=== PATIENT | male | born 1965 | race Caucasian/White ===

== ENCOUNTER 2018-01-19 06:04 | Inpatient (IN) | payer OTHER ==
[2018-01-19] MEDS ORDERED: NORMAL SALINE 1000 ML 1,000 ML IV ONE ×2 (06:39→09:30)
[2018-01-19] MEDS ORDERED: ONDANSETRON HCL INJ/PF 4 MG/2 ML SDV IV ONE (06:40)
[2018-01-19] MEDS ORDERED: MORPHINE SULFATE 10 MG/ML INJ IV ONE (06:40)
[2018-01-19 06:54] LABS: ABSOLUTE LYMPHOCYTES (AUTO) 0.9 10^3/uL (0.5-4.7); ABSOLUTE MONOCYTES (AUTO) 0.7 10^3/uL (0.1-1.4); ABSOLUTE NEUT (AUTO) 10.9 10^3/uL (1.7-8.2); BASOPHILS % (AUTO) 0.3 % (0-2); HEMATOCRIT 49.5 % (37.9-51.0); HEMOGLOBIN 17.6 g/dL (13.5-17.0); MEAN CORPUSCULAR HEMOGLOBIN 32.9 pg (27.0-33.4); MEAN CORPUSCULAR HGB CONC 35.6 g/dL (32.0-36.0); MEAN CORPUSCULAR VOLUME 92 fl (80-97); MONOCYTES % (AUTO) 5.4 % (3-13); PLATELET COUNT 171 10^3/uL (150-450); RED BLOOD COUNT 5.36 10^6/uL (4.35-5.55); RED CELL DISTRIBUTION WIDTH 13.3 % (11.5-14.0); SEGMENTED NEUTROPHILS % (AUTO) 87.3 % (42-78); TOTAL CELLS COUNTED % (AUTO) 100 %; WHITE BLOOD COUNT 12.5 10^3/uL (4.0-10.5)
[2018-01-19 07:02] LABS: ALANINE AMINOTRANSFERASE 45 U/L (21-72); ALBUMIN 4.3 g/dL (3.5-5.0); ALKALINE PHOSPHATASE 61 U/L (38-126); ANION GAP 17 (5-19); ASPARTATE AMINO TRANSFERASE 37 U/L (17-59); BILIRUBIN,DIRECT 0.6 mg/dL (0.0-0.4); BILIRUBIN,TOTAL 1.9 mg/dL (0.2-1.3); BLOOD UREA NITROGEN 16 mg/dL (7-20); CALCIUM 9.4 mg/dL (8.4-10.2); CARBON DIOXIDE 23 mmol/L (22-30); CHLORIDE 97 mmol/L (98-107); GLUCOSE 164 mg/dL (75-110); LIPASE 12.6 U/L (23-300); POTASSIUM 3.7 mmol/L (3.6-5.0); SODIUM 136.6 mmol/L (137-145); TOTAL PROTEIN 7.6 g/dL (6.3-8.2)
--- NOTE | 2018-01-19 07:24 | RADIOLOGY REPORT (SQ) ---
EXAM DESCRIPTION: XR CHEST 1 VIEW COMPLETED DATE/TME: 01/19/2018 06:39 CLINICAL HISTORY: 52 years Male, abd pain COMPARISON: None. NUMBER OF VIEWS/TECHNIQUE: 1/AP FINDINGS: Moderate lung volume, small patchy opacity at the left costophrenic angle,, normal cardiac silhouette, and intact bony thorax. IMPRESSION: Small left basilar pneumonia/atelectasis. Differential etiologies include infectious, inflammatory, and neoplastic processes. Recommend CR/CT surveillance including at 7-12 weeks following initiation of clinically warranted therapy.
--- NOTE | 2018-01-19 07:40 | ER Document Report ---
ED General - General Chief Complaint: Nausea/Vomiting Stated Complaint: VOMITING Time Seen by Provider: 01/19/18 06:23 TRAVEL OUTSIDE OF THE [place] IN LAST 30 DAYS: No - HPI Notes: 52-year-old male who comes in complaining of nausea vomiting that started 2 days ago. Has had subjective fever and chills. He has not measured. Make showing up green bile. Patient denies any diarrhea denies constipation states his abdomen sort of hurts all over nowhere focal. Denies any falls denies trauma. Denies sore throat. - Related Data Allergies/Adverse Reactions: No Known Allergies Allergy (Unverified 01/19/18 06:29) Past Medical History - Social History Smoking Status: Never Smoker Chew tobacco use (# tins/day): No Frequency of alcohol use: Heavy Drug Abuse: None Family History: None Patient has suicidal ideation: No Patient has homicidal ideation: No - Past Medical History Cardiac Medical History: Reports: Hx Hypertension Renal/ Medical History: Denies: Hx Peritoneal Dialysis Psychiatric Medical History: Reports: Hx Depression - +anxiety +PTSD Past Surgical History: Reports: Hx Orthopedic Surgery - shoulder Review of Systems - Review of Systems Cardiovascular: denies: Chest pain, Dyspnea Respiratory: denies: Cough Gastrointestinal: Abdomen distended, Abdominal pain, Nausea, Vomiting. denies: Diarrhea -: Yes All other systems reviewed and negative Physical Exam - Vital signs Vitals: Resp Pulse Ox 27 H 93 01/19/18 06:08 01/19/18 06:08 - Notes Notes: 52-year-old now comes in with abdominal cramping nausea vomiting. His abdomen is crampy all 4 quadrants but really no focal tenderness. We will give him IV fluids pain and nausea medicine get a scan of his abdomen check some generalized blood and electrolytes although this may likely be viral in nature. Course - Re-evaluation Re-evalutation: 01/19/18 08:25 52-year-old male who comes in for nausea vomiting some abdominal discomfort he is more tender in the right side of the abdomen. We are able to get some fluids pain and nausea medicine him and I reevaluated his abdomen and he is tenderness in the right lower quadrant. He does have a little bit of guarding. He does have a white count of almost [address] does show what looks to be some inflammation around the appendix. I have consulted surgery Dr. Nash he will come evaluate the patient for appropriateness for the OR. - Vital Signs Vital signs: Temp Pulse Resp BP Pulse Ox 98.4 F 22 H 109/77 92 01/19/18 06:24 01/19/18 07:02 01/19/18 07:02 01/19/18 07:02 - Laboratory Result Diagrams: 01/19/18 06:14 01/19/18 06:14 Laboratory results interpreted by me: 01/19/18 01/19/18 06:14 06:14 WBC 12.5 H Hgb 17.6 H Seg Neutrophils % 87.3 H Lymphocytes % 7.0 L Absolute Neutrophils 10.9 H Sodium 136.6 L Chloride 97 L Glucose 164 H Total Bilirubin 1.9 H Direct Bilirubin 0.6 H Lipase 12.6 L - Diagnostic Test Radiology reviewed: Image reviewed Radiology results interpreted by me: 01/19/18 08:25 Abdomen/Pelvis CT 01/19/18 06:39 IMPRESSION: 1. Acute appendicitis. 2. 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 Chest X-Ray 01/19/18 06:39 IMPRESSION: Small left basilar pneumonia/atelectasis. Differential etiologies include infectious, inflammatory, and neoplastic processes. Recommend CR/CT surveillance including at 7-12 weeks following initiation of clinically warranted therapy. Discharge - Discharge Clinical Impression: Appendicitis Qualifiers: Appendicitis type: acute appendicitis Acute appendicitis type: with localized peritonitis Qualified Code(s): K35.3 - Acute appendicitis with localized peritonitis Condition: Fair Disposition: ADMITTED INPATIENT Admitting Provider: Surgicalist Unit Admitted: OR
--- NOTE | 2018-01-19 07:55 | RADIOLOGY REPORT (SQ) ---
EXAM DESCRIPTION: CT ABDOMEN PELVIS WITH IV CONTRAST COMPLETED DATE/TME: 01/19/2018 06:39 CLINICAL HISTORY: 52 years Male, abd pain Comparison: None. Technique: IV contrast. Coronal and sagittal reformat. This exam was performed according to our departmental dose-optimization program, which includes automated exposure control, adjustment of the mA and/or kV according to patient size and/or use of iterative reconstruction technique. [facility]: Dose Right [facility]: CareDose [facility]: Dose Right [facility]: Teradose 4D [facility]: Anhelo LIMITATIONS: None Findings: Acute appendicitis pattern includes an obstructing 0.7 cm appendicolith, inflamed, 1.2 cm diameter appendix, moderate streaky periappendiceal fat, and no significant free fluid. Mild mesenteric lymphadenopathy of the right lower abdominal quadrant. Multiple likely benign low attenuation hepatic cysts measure up to 2.8 cm each. Small left inguinal fat only hernia. Moderate fat replacement of the pancreas. Small disc bulges between the L3 and S1 levels. 2.3 cm diameter aneurysmal enlargement of the left common iliac artery. No ascites. Inferior thorax, gallbladder, spleen, adrenals, renal system, pelvic organs, vasculature, and musculoskeleton appear otherwise unremarkable. IMPRESSION: 1. Acute appendicitis. 2. 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
[2018-01-19] MEDS ORDERED: PIPERACILLIN/TAZOBACTAM 3.375 GM VIAL IV ONE (10:00)
[2018-01-19] MEDS: MORPHINE SULFATE 10 MG/ML INJ IV PRN ×2 (10:35→19:03)
[2018-01-19] MEDS ORDERED: BUPIVACAINE HCL 0.25 % INJ/PF (2.5 MG/1 ML) 30 ML VIAL ONE (12:14)
[2018-01-19] MEDS ORDERED: ALBUTEROL SULFATE 0.083% NEB 2.5 MG/3 ML AMPUL NEB ONE (12:20)
[2018-01-19 12:36] LABS: APPEARANCE,URINE CLEAR; BILIRUBIN,URINE NEGATIVE (NEGATIVE); COLOR,URINE YELLOW; GLUCOSE, URINE 50 mg/dL (NEGATIVE); KETONES,URINE NEGATIVE (NEGATIVE); LEUKOCYTE ESTERASE,URINE NEGATIVE (NEGATIVE); NITRITE,URINE NEGATIVE (NEGATIVE); PROTEIN,URINE 30 mg/dL (NEGATIVE)
[2018-01-19 12:41] LABS: URINE SPECIFIC GRAVITY > 1.060
[2018-01-19] MEDS ORDERED: FENTANYL CITRATE INJ/PF 100 MCG/2 ML AMPUL ONE ×3 (13:23→16:33)
[2018-01-19] MEDS ORDERED: HYDROMORPHONE HCL INJ/PF 2 MG/ML AMPULE ONE (13:23)
[2018-01-19] MEDS ORDERED: PROPOFOL INJ 200 MG/20 ML VIAL IV ONE (13:24)
[2018-01-19] MEDS ORDERED: ACETAMINOPHEN 1,000 MG/100 ML RTUPB IV ONE (13:24)
[2018-01-19] MEDS ORDERED: MIDAZOLAM 2 MG/2 ML INJ ONE (13:24)
--- NOTE | 2018-01-19 13:42 | PDOC H&P ---
History of Present Illness Admission Date/PCP: 01/19/18 08:47 Patient complains of: Abdominal pains with nausea and vomiting History of Present Illness: SAÚL ASHFORD is a 52 year old male who c/o vague abdominal pains past 2 days which became worse last night and this time associated with N/V. Admits to having fever/chills. No diarrhea/constipation. Past Medical History Cardiac Medical History: Reports: Hypertension Psychiatric Medical History: Reports: Depression - +anxiety +PTSD Past Surgical History Past Surgical History: Reports: Orthopedic Surgery - shoulder Social History Smoking Status: Never Smoker - Advance Directive Resuscitation Status: Full Code Family History Family History: None Parental Family History Reviewed: Yes Children Family History Reviewed: No Sibling(s) Family History Reviewed.: No Medication/Allergy Allergies/Adverse Reactions: No Known Allergies Allergy (Unverified 01/19/18 06:29) Physical Exam Vital Signs: Temp Pulse Resp BP Pulse Ox 98.4 F 80 14 125/81 93 01/19/18 08:00 01/19/18 12:46 01/19/18 12:46 01/19/18 11:00 01/19/18 11:01 Results Laboratory Results: 01/19/18 12:03 Urine Color YELLOW Urine Appearance CLEAR Urine pH 6.0 Ur Specific [place] > 1.060 Urine Protein 30 H Urine Glucose (UA) 50 H Urine Ketones NEGATIVE Urine Blood NEGATIVE Urine Nitrite NEGATIVE Ur Leukocyte Esterase NEGATIVE Urine WBC (Auto) 1 Urine RBC (Auto) 2 Impressions: Abdomen/Pelvis CT 01/19/18 06:39 IMPRESSION: 1. Acute appendicitis. 2. 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 Chest X-Ray 01/19/18 06:39 IMPRESSION: Small left basilar pneumonia/atelectasis. Differential etiologies include infectious, inflammatory, and neoplastic processes. Recommend CR/CT surveillance including at 7-12 weeks following initiation of clinically warranted therapy. Assessment & Plan - Time Time Spent: 30 to 50 Minutes - Plan Summary Plan Summary: To OR for Lap Appendectomy
[2018-01-19] MEDS ORDERED: PROMETHAZINE HCL INJ 25 MG/1 ML VIAL IV PRN (14:40)
[2018-01-19] MEDS ORDERED: DIPHENHYDRAMINE HCL 50 MG/ML VIAL IV PRN (14:40)
[2018-01-19] MEDS ORDERED: FENTANYL CITRATE INJ/PF 100 MCG/2 ML AMPUL IV PRN ×2 (14:40)
[2018-01-19] MEDS ORDERED: DEXTROSE 40% GEL 15 GM TUBE PO PRN ×2 (16:10)
[2018-01-19] MEDS ORDERED: DEXTROSE 50%-WATER 25 GM/50 ML DISP.SYRIN IV PRN ×2 (16:10)
[2018-01-19] MEDS ORDERED: GLUCAGON,HUMAN RECOMB 1 MG INJ SUBCUT PRN (16:10)
[2018-01-19] MEDS ORDERED: ONDANSETRON HCL INJ/PF 4 MG/2 ML SDV IV PRN (16:17)
[2018-01-19] MEDS: FENTANYL CITRATE INJ/PF 100 MCG/2 ML AMPUL IV PRN ×2 (16:23→16:33)
[2018-01-19] MEDS ORDERED: PHARMACY COMMUNICATION ORDER MC NR (16:30)
--- NOTE | 2018-01-19 17:20 | OPERATIVE REPORT E ---
Operative Report NAME: SAÚL ASHFORD : 1965 AGE: 52Y DATE OF SURGERY: 01/19/2018 ROOM: ED06 PREOPERATIVE DIAGNOSIS: ACUTE PERFORATED APPENDICITIS WITH PERITONITIS. POSTOPERATIVE DIAGNOSIS: ACUTE PERFORATED APPENDICITIS WITH PERITONITIS. OPERATION: OPEN APPENDECTOMY. SURGEON: CLARKE PACHECO M.D. ANESTHESIA: General. INDICATION: This is a 52-year-old male with at least 2 days of abdominal pain with nausea and vomiting. The pains worsened last night and he went to the ED, where he was noted to have acute appendicitis with clinical peritonitis. The patient is primarily tender in both lower quadrants. PROCEDURE: After adequate general anesthesia, the abdomen was prepped and draped in the usual sterile fashion. Appropriate timeout was then called. Next, an infraumbilical elliptical incision was made. Fascia was grasped with Avelina clamps and divided between the Avelina clamps, dissected and dilated with Rachel clamp. Malika trocar was then inserted. CO2 insufflated to about 15 mmHg. Next, a camera was then inserted and there appears to be exudates primarily along both lower quadrants. There was not any omentum covering the area of the appendix, but small bowel that is markedly inflamed was adherent towards the area of the appendix. In view of perforation of the appendix, the operation was then converted to open. Midline incision was then made, starting from the pubis to just above the umbilicus. With the use of Bookwalter retractors, the appendix was identified and noted to be perforated right at its mid part. It was noted to be dilated to at least 12 mm. The mesoappendix was then serially divided with Harmonic lambert. However, there is some bleeding noted that was then controlled with rhpyfq-[id number] suture using 2-0 Vicryl suture. The base of the appendix was noted to be quite free of inflammation. This was then stapled flush to the cecum using a 30 cm stapler. The appendix was then shaved off of the TA30 and the TA30 subsequently released. Small amount of oozing noted at the appendiceal stump, and this was then controlled with a couple of [id number] sutures using 3-0 Vicryl stitch. The fatty mesentery close to the appendix was then used to buttress the appendiceal stump with 3-0 Vicryl stitch. Following this, the abdominal cavity was then copiously irrigated. The small bowel was then tracked from the ileum from the cecum towards the ligament of Treitz, and no evidence of injury or significant inflammation noted. It was somewhat inflamed at the terminal ileum from the appendicitis. The abdominal cavity was irrigated with at least 5 liters of saline from all 4 quadrants. NG tube was palpated in the stomach and taped in place by the manager paid. The omentum was palpated to be right below the stomach, but not enough to go down into the area of the appendix, and most likely one of the reasons for its perforation, though relatively contained. However, there is a lot of exudate in the lower abdomen. Cultures were obtained. After the wound was irrigated, the fascia was then closed with running suture using single arm 0 PDS, starting from both ends and tying the 2 together just below the umbilicus. In view of the potential contaminating of the subcutaneous area and the fact that the patient is slightly obese, it feels prudent to place a Wound Vac and close the wound in delayed primary in about 3 or 4 days. This was then carried out. The Wound Vac was placed. A drain was placed at the right lower quadrant prior to closure of the fascia using 15 [place] Semaj drain catheter placed towards the area of the pelvis. It was then anchored to the skin with 2-0 silk. After placement of the Wound Vac, the patient was then extubated. The patient tolerated the procedure well. Needle, instrument, and sponge count correct. Estimated blood loss about 30 mL. The patient was brought to the recovery room in satisfactory condition. DICTATING PHYSICIAN: CLARKE PACHECO M.D. [id number] PHY#: [id number] ID: [id number] JOB#: [id number] ACCT: [id number] cc:CLARKE PACHECO M.D. >
[2018-01-19] MEDS ORDERED: PIPERACILLIN/TAZOBACTAM 3.375 GM VIAL IV SCH (18:00)
[2018-01-19] MEDS ORDERED: NORMAL SALINE 500 ML IV ONE ×2 (18:30→23:45)
[2018-01-19] MEDS: PIPERACILLIN SODIUM/TAZOBACTAM 3.375 GM in NORMAL SALINE 100 ML IV SCH (19:10)
[2018-01-19] MEDS ORDERED: ONDANSETRON HCL INJ/PF 4 MG/2 ML SDV ONE (21:20)
[2018-01-19] MEDS ORDERED: GLYCOPYRROLATE 1 MG/5 ML SYRINGE ONE (21:20)
[2018-01-19] MEDS ORDERED: NEOSTIGMINE METHYLSULFATE 10 MG/10 ML VIAL ONE (21:20)
[2018-01-19] MEDS ORDERED: ROCURONIUM BROMIDE INJ 50 MG/5 ML VIAL IV ONE (21:20)
[2018-01-19] MEDS ORDERED: DEXAMETHASONE SOD PHOSPHATE INJ 4 MG/1 ML VIAL ONE (21:20)
[2018-01-19] MEDS ORDERED: SUCCINYLCHOLINE CHLORIDE INJ 200 MG/10 ML VIAL ONE (21:20)
--- NOTE | 2018-01-19 21:24 | EKG REPORT ---
SEVERITY:- BORDERLINE ECG - SINUS RHYTHM BORDERLINE T ABNORMALITIES, INFERIOR LEADS : Confirmed by: Jeannette Mesa 19-Jan-2018 21:23:19
[2018-01-20] MEDS: MORPHINE SULFATE 10 MG/ML INJ IV PRN ×5 (00:08→22:00)
[2018-01-20] MEDS: PIPERACILLIN SODIUM/TAZOBACTAM 3.375 GM in NORMAL SALINE 100 ML IV SCH ×4 (00:09→18:34)
[2018-01-20] MEDS: DEXTROSE 5%-LACTATED RINGERS 1,000 ML IV SCH ×5 (00:09→18:56)
[2018-01-20 06:59] LABS: ABSOLUTE LYMPHOCYTES (AUTO) 0.7 10^3/uL (0.5-4.7); ABSOLUTE MONOCYTES (AUTO) 0.4 10^3/uL (0.1-1.4); ABSOLUTE NEUT (AUTO) 6.1 10^3/uL (1.7-8.2); BASOPHILS % (AUTO) 0.3 % (0-2); HEMATOCRIT 40.8 % (37.9-51.0); LYMPHOCYTES % (AUTO) 9.6 % (13-45); MEAN CORPUSCULAR HEMOGLOBIN 33.1 pg (27.0-33.4); MEAN CORPUSCULAR HGB CONC 34.9 g/dL (32.0-36.0); MEAN CORPUSCULAR VOLUME 95 fl (80-97); PLATELET COUNT 107 10^3/uL (150-450); RED CELL DISTRIBUTION WIDTH 13.5 % (11.5-14.0); SEGMENTED NEUTROPHILS % (AUTO) 84.1 % (42-78); TOTAL CELLS COUNTED % (AUTO) 100 %; WHITE BLOOD COUNT 7.2 10^3/uL (4.0-10.5)
[2018-01-20 07:07] LABS: HEMOGLOBIN 14.2 g/dL (13.5-17.0)
[2018-01-20 07:11] LABS: ANION GAP 6 (5-19); BLOOD UREA NITROGEN 13 mg/dL (7-20); CALCIUM 8.6 mg/dL (8.4-10.2); CARBON DIOXIDE 30 mmol/L (22-30); CHLORIDE 105 mmol/L (98-107); GLUCOSE 113 mg/dL (75-110); POTASSIUM 3.8 mmol/L (3.6-5.0); SODIUM 141.4 mmol/L (137-145)
[2018-01-20] MEDS: ENOXAPARIN SODIUM INJ 40 MG/0.4 ML DISP.SYRIN SUBCUT SCH (10:52)
--- NOTE | 2018-01-20 14:39 | PDOC PROGRESS REPORT ---
Subjective Progress Note for:: 01/20/18 Reason For Visit: ACUTE APPENDICITIS WITH PERITONITIS Patient postoperative day 1, has adequate pain control, back, abdominal drain, Goss catheter still in. Physical Exam Vital Signs: Temp Pulse Resp BP Pulse Ox 98.4 F 68 22 H 134/85 H 93 01/20/18 11:25 01/20/18 11:25 01/20/18 11:25 01/20/18 11:25 01/20/18 11:25 Intake & Output 01/19/18 01/20/18 01/21/18 06:59 06:59 06:59 Intake Total 8800 Output Total 6195 395 Balance 2605 -395 Weight 118.887 kg General appearance: PRESENT: no acute distress GI/Abdominal exam: PRESENT: other - Appropriately tender; fax suction intact; serous sanguinous drainage from right lower Results Laboratory Results: 01/20/18 06:21 01/20/18 06:21 01/20/18 01/20/18 06:21 06:21 WBC 7.2 RBC 4.30 L Hgb 14.2 D Hct 40.8 MCV 95 MCH 33.1 MCHC 34.9 RDW 13.5 Plt Count 107 L Seg Neutrophils % 84.1 H Lymphocytes % 9.6 L Monocytes % 6.0 Eosinophils % 0.0 Basophils % 0.3 Absolute Neutrophils 6.1 Absolute Lymphocytes 0.7 Absolute Monocytes 0.4 Absolute Eosinophils 0.0 Absolute Basophils 0.0 Sodium 141.4 Potassium 3.8 Chloride 105 Carbon Dioxide 30 Anion Gap 6 BUN 13 Creatinine 0.87 Est GFR ( Amer) > 60 Est GFR (Non-Af Amer) > 60 Glucose 113 H Calcium 8.6 Impressions: Abdomen/Pelvis CT 01/19/18 06:39 IMPRESSION: 1. Acute appendicitis. 2. 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 Chest X-Ray 01/19/18 06:39 IMPRESSION: Small left basilar pneumonia/atelectasis. Differential etiologies include infectious, inflammatory, and neoplastic processes. Recommend CR/CT surveillance including at 7-12 weeks following initiation of clinically warranted therapy. Assessment & Plan - Diagnosis (1) Appendicitis Qualifiers: Appendicitis type: acute appendicitis Acute appendicitis type: with localized peritonitis Qualified Code(s): K35.3 - Acute appendicitis with localized peritonitis Is this a current diagnosis for this admission?: Yes Plan: Doing well early postoperative course Recommendations: 1. Start clear liquids 2. Discontinue Goss catheter 3. Out of bed ambulating; increased pulmonary toilet 4. We will provide p.o. pain medication.
[2018-01-20] MEDS: KETOROLAC TROMETHAMINE INJ/PF 30 MG/1 ML SDV IV PRN (15:42)
[2018-01-20] MEDS: HYDROCHLOROTHIAZIDE 12.5 MG TABLET PO SCH (21:59)
[2018-01-20] MEDS: LISINOPRIL 10 MG TABLET PO SCH (22:00)
[2018-01-20] MEDS ORDERED: (PENDING PHARMACY ID) (Lisinopril/Hydrochlorothiazide [Lisinopril-Hctz 10-12.5 Mg Tab] 1 T PO SCH (22:00)
[2018-01-20] MEDS ORDERED: FUROSEMIDE INJ/PF 20 MG/2 ML SDV IV ONE (23:00)
[2018-01-20] MEDS ORDERED: ACETAMINOPHEN 325 MG TABLET PO ONE (23:00)
[2018-01-21] MEDS: PIPERACILLIN SODIUM/TAZOBACTAM 3.375 GM in NORMAL SALINE 100 ML IV SCH ×3 (00:20→12:07)
[2018-01-21] MEDS: DEXTROSE 5%-LACTATED RINGERS 1,000 ML IV SCH (03:34)
[2018-01-21] MEDS: KETOROLAC TROMETHAMINE 10 MG TABLET PO PRN ×3 (07:46→21:49)
[2018-01-21 09:29] LABS: ABSOLUTE EOSINOPHILS # (AUTO) 0.2 10^3/uL (0.0-0.6); ABSOLUTE LYMPHOCYTES (AUTO) 0.5 10^3/uL (0.5-4.7); ABSOLUTE MONOCYTES (AUTO) 0.6 10^3/uL (0.1-1.4); BASOPHILS % (AUTO) 0.3 % (0-2); EOSINOPHILS % (AUTO) 2.7 % (0-6); HEMATOCRIT 38.6 % (37.9-51.0); HEMOGLOBIN 13.7 g/dL (13.5-17.0); LYMPHOCYTES % (AUTO) 8.4 % (13-45); MEAN CORPUSCULAR HEMOGLOBIN 33.4 pg (27.0-33.4); MEAN CORPUSCULAR HGB CONC 35.4 g/dL (32.0-36.0); MEAN CORPUSCULAR VOLUME 94 fl (80-97); PLATELET COUNT 113 10^3/uL (150-450); RED BLOOD COUNT 4.09 10^6/uL (4.35-5.55); RED CELL DISTRIBUTION WIDTH 13.3 % (11.5-14.0); SEGMENTED NEUTROPHILS % (AUTO) 79.6 % (42-78); TOTAL CELLS COUNTED % (AUTO) 100 %; WHITE BLOOD COUNT 6.3 10^3/uL (4.0-10.5)
[2018-01-21] MEDS: LISINOPRIL 10 MG TABLET PO SCH ×2 (09:33→21:51)
[2018-01-21] MEDS: HYDROCHLOROTHIAZIDE 12.5 MG TABLET PO SCH ×2 (09:33→21:50)
[2018-01-21] MEDS: ENOXAPARIN SODIUM INJ 40 MG/0.4 ML DISP.SYRIN SUBCUT SCH (09:34)
--- NOTE | 2018-01-21 10:05 | RADIOLOGY REPORT (SQ) ---
EXAM DESCRIPTION: CT CHEST WITHOUT COMPLETED DATE/TIME: 01/21/2018 9:05 am REASON FOR STUDY: SOB AND CRACKLES COMPARISON: CT abdomen pelvis 01/19/2018 TECHNIQUE: CT scan performed of the chest without intravenous contrast. Images reviewed with lung, soft tissue and bone windows. Reconstructed coronal and sagittal MPR images reviewed. All images st ored on PACS. All CT scanners at this facility use dose modulation, iterative reconstruction, and/or weight based d osing when appropriate to reduce radiation dose to as low as reasonably achievable (ALARA). [facility]: Dose Right [facility]: CareDose [facility]: Dose Right [facility]: Teradose 4D [facility]: Verious RADIATION DOSE: CT Rad equipment meets quality standard of care and radiation dose reduction techniq ues were employed. CTDIvol: 18.4 mGy. DLP: 643 mGy-cm. mGy. LIMITATIONS: No technical limitations. FINDINGS: LUNGS AND PLEURA: There is bibasilar consolidation atelectasis versus pneumonia. No significant pleural fluid. No pneumothorax. No worrisome pulmonary nodules. HILAR AND MEDIASTINAL STRUCTURES: No identified masses or abnormal nodes. No obvious aneurysm. HEART AND VASCULAR STRUCTURES: No aneurysm. No pericardial effusion. UPPER ABDOMEN: Fatty liver. Benign hepatic cysts. THYROID AND OTHER SOFT TISSUES: No masses. No adenopathy. BONES: No significant finding. HARDWARE: None in the chest. OTHER: No other significant findings. IMPRESSION: Bibasilar consolidation atelectasis versus pneumonia TECHNICAL DOCUMENTATION: JOB ID: [id number] Quality ID # [id number]: Final reports with documentation of one or more dose reduction techniques (e.g., Au tomated exposure control, adjustment of the mA and/or kV according to patient size, use of iterative reconstruction technique) 2010 [employer]- All Rights Reserved Reading location - IP/workstation name: [email or web address]
--- NOTE | 2018-01-21 12:01 | PDOC CONSULTATION ---
Consultation Consult Date: 01/21/18 Attending physician:: SARAHI FRANCO Consult reason:: Fever, possible pneumonia, acute perforated appendicitis status post surgery 01/19/18 History of Present Illness Admission Date/PCP: 01/19/18 08:47 Patient complains of: Doing better at this time, still with abdominal pain but improving. History of Present Illness: SAÚL ASHFORD is a 52 year old male with several weeks of right lower quadrant abdominal pain on and off, presented to ED 01/19/18 with worsening pain over the past 2 days. Evaluation concerning for tenderness and signs of peritonitis. Patient was taken to the OR and he is status post surgery 01/19/[address] Franco. Initial hemoglobin was 12.5, but has improved. Patient currently on Zosyn. The surgeon obtained medical consult today because patient with fevers ( low-grade today) and chest x-ray concerning for atelectasis versus pneumonia versus mass. Patient reports doing better, ambulating around the floor, denies fever or chills, no chest pain or shortness of breath or palpitations. He is tolerating soft diet. No nausea or vomiting. He denies cough or hemoptysis. Past Medical History Cardiac Medical History: Reports: Hypertension Psychiatric Medical History: Reports: Depression Past Surgical History Past Surgical History: Reports: Appendectomy, Orthopedic Surgery - shoulder Social History Smoking Status: Never Smoker Frequency of Alcohol Use: Occasional Hx Recreational Drug Use: No Drugs: None Hx Prescription Drug Abuse: No - Advance Directive Resuscitation Status: Full Code Family History Family History: None Parental Family History Reviewed: Yes Children Family History Reviewed: Yes Sibling(s) Family History Reviewed.: Yes Medication/Allergy Home Medications: Lisinopril/Hydrochlorothiazide [Lisinopril-Hctz 10-12.5 mg Tab] 1 tab PO Q12 07/08 Allergies/Adverse Reactions: No Known Allergies Allergy (Unverified 01/19/18 06:29) Review of Systems Review of Systems: CONSTITUTIONAL : Fever, chills -- No; unexpalined fatigue -- No EENT: Denies eye, ear, throat, or mouth pain or symptoms. Denies nasal or sinus congestion or discharge. Denies throat, tongue, or mouth swelling or difficulty swallowing. CARDIOVASCULAR: Denies chest pain. No racing heart RESPIRATORY: Denies cough, no shortness of breath, difficulty breathing. GASTROINTESTINAL: Has right lower quadrant pain. Denies distention. Denies nausea, vomiting, or diarrhea. No rectal bleeding. GENITOURINARY: Urinary symptoms -- no. MUSCULOSKELETAL: No acute weakness SKIN: Denies rash, lesions or sores. HEMATOLOGIC : Denies easy bruising or bleeding. LYMPHATIC: Denies swollen, enlarged glands. NEUROLOGICAL: New weakness, headaches, slured speach - No PSYCHIATRIC: Changes anxiety or stress, depression, suicidal ideation, or homicidal ideation -- No ALL OTHER SYSTEMS REVIEWED AND NEGATIVE. Physical Exam Vital Signs: Temp Pulse Resp BP Pulse Ox 100.8 F H 77 24 H 135/92 H 96 01/21/18 07:45 01/21/18 09:30 01/21/18 09:30 01/21/18 09:30 01/21/18 09:30 Intake & Output 01/20/18 01/21/18 01/22/18 06:59 06:59 06:59 Intake Total 8800 4238 Output Total 6195 1665 10 Balance 0735 2573 -10 Weight 118.887 kg 119.4 kg GENERAL: Well-developed, no acute distress HEENT: Normocephalic/atraumatic NECK supple, no JVD CARDIOVASCULAR: RRR, normal S1-S2, no appreciable murmur LUNGS: Few basilar crackles, good air movement, no wheezing or rales ABDOMEN: Soft, surgical site without erythema, dressing clean dry and intact. There is mild tenderness around surgical site with no guarding or rebound. NL bowel sounds EXTREMITIES: No edema, clubbing, cyanosis NEUROLOGICAL: Alert, oriented x 3, nonfocal Results Laboratory Results: 01/21/18 09:10 01/20/18 06:21 01/21/18 09:10 WBC 6.3 RBC 4.09 L Hgb 13.7 Hct 38.6 MCV 94 MCH 33.4 MCHC 35.4 RDW 13.3 Plt Count 113 L Seg Neutrophils % 79.6 H Lymphocytes % 8.4 L Monocytes % 9.0 Eosinophils % 2.7 Basophils % 0.3 Absolute Neutrophils 5.0 Absolute Lymphocytes 0.5 Absolute Monocytes 0.6 Absolute Eosinophils 0.2 Absolute Basophils 0.0 Impressions: Abdomen/Pelvis CT 01/19/18 06:39 IMPRESSION: 1. Acute appendicitis. 2. 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 Chest X-Ray 01/19/18 06:39 IMPRESSION: Small left basilar pneumonia/atelectasis. Differential etiologies include infectious, inflammatory, and neoplastic processes. Recommend CR/CT surveillance including at 7-12 weeks following initiation of clinically warranted therapy. Chest CT 01/21/18 00:00 IMPRESSION: Bibasilar consolidation atelectasis versus pneumonia Assessment & Plan - Diagnosis (1) Fever Is this a current diagnosis for this admission?: Yes Plan: Patient status post surgery for perforated appendix. Culture growing E. coli at this time sensitive to Zosyn, as well as Levaquin. -Of note is patient had leukocytosis, but it has now resolved. -Chest CT has been done this morning, concerning for possible pneumonia versus atelectasis. -I suspect transitioning antibiotics to Levaquin should be sufficient, but will obtain ID evaluation, given ruptured appendix to see if at least to Flagyl orally to complete outpatient treatment for antibiotics. -Incentive spirometry. (2) Leukocytosis Is this a current diagnosis for this admission?: Yes Plan: This was present on admission, but has now improved. Also, see "fever" above. (3) Hypertension Is this a current diagnosis for this admission?: Yes Plan: Stable. Continue management. (4) Appendicitis Qualifiers: Appendicitis type: acute appendicitis Acute appendicitis type: with localized peritonitis Qualified Code(s): K35.3 - Acute appendicitis with localized peritonitis Is this a current diagnosis for this admission?: Yes Plan: -Status post surgery. Postop care per surgeon. -Incentive spirometry - Plan Summary Plan Summary: Suspect postop fevers. Doubt pneumonia. Suspect atelectasis. Advice incentive spirometry. Will await ID recommendation in any case.
[2018-01-21] MEDS: ALBUTEROL SULFATE 0.083% NEB 2.5 MG/3 ML AMPUL NEB SCH ×2 (13:11→20:13)
--- NOTE | 2018-01-21 14:45 | Progress Note ---
Provider Note Provider Note: ID Consult Note Asked to provide input regarding this case. Pt not seen or examined. Reviewed patient's chart and discussed with Dr. Adams via telephone. Mr Berrios is a 52 year old man with PMH including obesity and HTN who presented on 01/19/18 with acute onset of abdominal pain with associated N&V and subjective fever and chills at home for the past 2 days with lower abdominal tenderness on exam and CT abdomen revealing findings c/w acute appendicitis. He was taken to the OR on 01/19 for open appendectomy through midline incision, was found to have perforated appendicitis with peritonitis. The abdomen was irrigated. A lot of exudate was noted in the lower abdomen and from this culture was obtained, which has shown growth of E coli (resistant to Unasyn and ampicillin), Peptostreptococcus and Bacteroides (beta lactamase positive). Wound vac was placed to help closure considering pt's obesity. Pt has been reported to be doing well post operatively but has had fever to 102.6 on 01/20 and 100.8 F on 01/21. His WBC count is normal. He is ambulating. He has no complaints of SOB or cough that have been noted. Pt has been receiving Zosyn. He had chest imaging ( CT, CXR) read as c/w atelectasis vs pneumonia. Impression/Recommendations Post-operative fever Perforated appendicitis s/p appendectomy, washout Atelectasis With source control achieved, post-op duration of antibiotics should be limited to a short course, no more than 4-7 days in duration. With no Pseudomonas isolated and patient being from the community, the broader spectrum of activity of Zosyn is not required. Can de-escalate to Rocephin 2 g IV plus Flagyl while patient is hospitalized and, if discharged prior to completion of this should course of antibiotics, can complete treatment instead with Cipro 500 mg BID PO plus Flagyl 500 mg TID PO. Pt should be counseled on need to avoid alcohol while on Flagyl and to avoid taking calcium, iron or other multivalent cation containing products (Maalox, Mylanta, multivitamin with minerals) concurrently with the fluoroquinolone to avoid chelating the fluoroquinolone and reducing exposure. With patient have no SOB, O2 requirement or cough or adventitious lung sounds apart from some fine crackles at bases b/l, pneumonia appears unlikely. Thiago Dasilva MD [facility], 1928–1983 Infectious Diseases pager [phone]
[2018-01-21] MEDS: CEFTRIAXONE 2 GM/D5W RTU 2 GM/50 ML RTUPB IV SCH (17:31)
[2018-01-21] MEDS: METRONIDAZOLE 500 MG/NS RTU 500 MG/100 ML RTUPB IV SCH (21:55)
[2018-01-21] MEDS: ACETAMINOPHEN 325 MG TABLET PO PRN (21:56)
[2018-01-22] MEDS: NORMAL SALINE 1000 ML 1,000 ML IV PRN ×3 (00:51→17:02)
[2018-01-22] MEDS: ALBUTEROL SULFATE 0.083% NEB 2.5 MG/3 ML AMPUL NEB SCH ×4 (02:12→19:49)
[2018-01-22] MEDS ORDERED: DEXTROSE 40% GEL 15 GM TUBE PO PRN ×2 (05:48)
[2018-01-22] MEDS ORDERED: DEXTROSE 50%-WATER 25 GM/50 ML DISP.SYRIN IV PRN ×2 (05:48)
[2018-01-22] MEDS ORDERED: GLUCAGON,HUMAN RECOMB 1 MG INJ SUBCUT PRN (05:48)
[2018-01-22] MEDS: METRONIDAZOLE 500 MG/NS RTU 500 MG/100 ML RTUPB IV SCH ×3 (05:57→21:39)
[2018-01-22] MEDS: ACETAMINOPHEN 325 MG TABLET PO PRN (06:14)
[2018-01-22] MEDS: KETOROLAC TROMETHAMINE 10 MG TABLET PO PRN (06:15)
[2018-01-22 06:51] LABS: ABSOLUTE EOSINOPHILS # (AUTO) 0.3 10^3/uL (0.0-0.6); ABSOLUTE LYMPHOCYTES (AUTO) 0.9 10^3/uL (0.5-4.7); ABSOLUTE MONOCYTES (AUTO) 0.7 10^3/uL (0.1-1.4); ABSOLUTE NEUT (AUTO) 3.9 10^3/uL (1.7-8.2); BASOPHILS % (AUTO) 0.3 % (0-2); EOSINOPHILS % (AUTO) 4.9 % (0-6); HEMATOCRIT 39.4 % (37.9-51.0); LYMPHOCYTES % (AUTO) 15.3 % (13-45); MEAN CORPUSCULAR HGB CONC 35.4 g/dL (32.0-36.0); MEAN CORPUSCULAR VOLUME 93 fl (80-97); MONOCYTES % (AUTO) 11.6 % (3-13); PLATELET COUNT 126 10^3/uL (150-450); RED BLOOD COUNT 4.23 10^6/uL (4.35-5.55); RED CELL DISTRIBUTION WIDTH 13.1 % (11.5-14.0); SEGMENTED NEUTROPHILS % (AUTO) 67.9 % (42-78); TOTAL CELLS COUNTED % (AUTO) 100 %; WHITE BLOOD COUNT 5.7 10^3/uL (4.0-10.5)
[2018-01-22] MEDS: HYDROCHLOROTHIAZIDE 12.5 MG TABLET PO SCH ×2 (09:26→21:41)
[2018-01-22] MEDS: LISINOPRIL 10 MG TABLET PO SCH ×2 (09:27→21:41)
[2018-01-22] MEDS: ENOXAPARIN SODIUM INJ 40 MG/0.4 ML DISP.SYRIN SUBCUT SCH (09:27)
[2018-01-22] MEDS: KETOROLAC TROMETHAMINE INJ/PF 30 MG/1 ML SDV IV PRN ×2 (10:17→20:07)
[2018-01-22] MEDS ORDERED: MIDAZOLAM 2 MG/2 ML INJ ONE ×2 (13:08)
[2018-01-22] MEDS ORDERED: MORPHINE SULFATE 10 MG/ML INJ ONE ×2 (13:08→14:29)
[2018-01-22] MEDS ORDERED: PROPOFOL INJ 200 MG/20 ML VIAL IV ONE (13:08)
[2018-01-22] MEDS ORDERED: FENTANYL CITRATE INJ/PF 100 MCG/2 ML AMPUL ONE (13:08)
[2018-01-22] MEDS ORDERED: BUPIVACAINE HCL 0.25 % INJ/PF (2.5 MG/1 ML) 30 ML VIAL ONE (13:30)
[2018-01-22] MEDS ORDERED: LIDOCAINE 1% INJ-PF (10 MG/ML) 30 ML SDV ONE (13:30)
[2018-01-22] MEDS ORDERED: MORPHINE SULFATE 10 MG/ML INJ INJ ONE ×3 (14:29→14:39)
[2018-01-22] MEDS ORDERED: PROMETHAZINE HCL INJ 25 MG/1 ML VIAL IV PRN ×2 (14:42)
[2018-01-22] MEDS ORDERED: MORPHINE SULFATE 10 MG/ML INJ IV PRN (14:42)
[2018-01-22] MEDS ORDERED: MEPERIDINE HCL/PF INJ 25 MG/1 ML DISP.SYRIN IV PRN (14:42)
[2018-01-22] MEDS ORDERED: FENTANYL CITRATE INJ/PF 100 MCG/2 ML AMPUL IV PRN ×3 (14:42)
[2018-01-22] MEDS ORDERED: DIPHENHYDRAMINE HCL 50 MG/ML VIAL IV PRN (14:42)
[2018-01-22] MEDS ORDERED: ONDANSETRON 4 MG TAB.RAPDIS PO PRN (15:22)
--- NOTE | 2018-01-22 16:57 | PDOC PROGRESS REPORT ---
Subjective Progress Note for:: 01/22/18 Subjective:: Patient was admitted for acute appendecitis. Hospitalist service was sought due to fever and questionable pneumonia. He underwent an open appendectomy for perforated appendicitis on 01/19/18. Patient is going for closure of today. No acute event overnight. Patient denies abdominal pain, nausea or vomiting. 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 Denies chills. He denies shortness of breath or cough. Reason For Visit: ACUTE APPENDICITIS WITH PERITONITIS Physical Exam Vital Signs: Temp Pulse Resp BP Pulse Ox 98.4 F 69 18 140/99 H 96 01/22/18 15:38 01/22/18 15:38 01/22/18 15:38 01/22/18 15:38 01/22/18 15:48 Intake & Output 01/21/18 01/22/18 01/23/18 06:59 06:59 06:59 Intake Total 4238 1890 2100 Output Total 1665 2665 100 Balance 2573 -775 2000 Weight 263 lb 3.711 oz 262 lb 5.601 oz General appearance: PRESENT: no acute distress, well-developed, well-nourished Head exam: PRESENT: atraumatic, normocephalic Eye exam: PRESENT: conjunctiva pink Neck exam: ABSENT: carotid bruit, JVD, lymphadenopathy, thyromegaly Respiratory exam: PRESENT: clear to auscultation lorenza, other - occasional rhonchi on the bases. ABSENT: rales, wheezes Cardiovascular exam: PRESENT: RRR. ABSENT: diastolic murmur, rubs, systolic murmur GI/Abdominal exam: PRESENT: other - No tenderness, previous surgical incision not yet closed (for closure today) Rectal exam: PRESENT: deferred Extremities exam: PRESENT: full ROM. ABSENT: calf tenderness, clubbing, pedal edema Neurological exam: PRESENT: alert, awake, oriented to person, oriented to place , oriented to time, oriented to situation, CN II-XII grossly intact. ABSENT: motor sensory deficit Results Laboratory Results: 01/22/18 06:33 01/20/18 06:21 01/22/18 06:33 WBC 5.7 RBC 4.23 L Hgb 14.0 Hct 39.4 MCV 93 MCH 33.0 MCHC 35.4 RDW 13.1 Plt Count 126 L Seg Neutrophils % 67.9 Lymphocytes % 15.3 Monocytes % 11.6 Eosinophils % 4.9 Basophils % 0.3 Absolute Neutrophils 3.9 Absolute Lymphocytes 0.9 Absolute Monocytes 0.7 Absolute Eosinophils 0.3 Absolute Basophils 0.0 01/19/18 14:39 Appendix Gram Stain - Final 01/19/18 14:39 Appendix Wound Culture - Final Escherichia Coli Bacteroides Fragilis Group Peptostreptococcus Species Impressions: Abdomen/Pelvis CT 01/19/18 06:39 IMPRESSION: 1. Acute appendicitis. 2. 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 Chest X-Ray 01/19/18 06:39 IMPRESSION: Small left basilar pneumonia/atelectasis. Differential etiologies include infectious, inflammatory, and neoplastic processes. Recommend CR/CT surveillance including at 7-12 weeks following initiation of clinically warranted therapy. Chest CT 01/21/18 00:00 IMPRESSION: Bibasilar consolidation atelectasis versus pneumonia Assessment & Plan - Diagnosis (1) Fever Is this a current diagnosis for this admission?: Yes Plan: Patient's temp has been trending down. WBC is normal today. Previous chest CT shows questionable atelectasis vs pneumonia. Patient continues to deny cough or SOB. Reviewed and compared CT of the abdomen done on 01/[address] done after surgery. Initial abdominal CT showed clear lung bases. Questionable consolidation on chest CT post-op are more likely to be atelectases based on their dependent positions and interval development in less than 36 hrs. Continue incentive spirometry. Regardless, continue to monitor for clinical signs of pneumonia Patient had abodminal washout and cultures grew E. coli and anaerobes. On Rocephin and Flagyl per ID recommendation. (2) Perforated appendicitis Is this a current diagnosis for this admission?: Yes Plan: S/P open appendectomy on 01/19/18 with wound vac placement. Going for closure of incision today. - Time Time Spent with patient: 15-24 minutes
[2018-01-22] MEDS: CEFTRIAXONE 2 GM/D5W RTU 2 GM/50 ML RTUPB IV SCH (17:01)
--- NOTE | 2018-01-22 18:15 | OPERATIVE REPORT E ---
Operative Report NAME: SAÚL ASHFORD : 1965 AGE: 52Y DATE OF SURGERY: 01/22/2018 ROOM: 214 PREOPERATIVE DIAGNOSIS: POST OPEN APPENDECTOMY FOR PERFORATED ACUTE APPENDICITIS 01/19/2018 WITH PLACEMENT OF WOUND VAC ON THE SKIN INCISION. POSTOPERATIVE DIAGNOSIS: POST OPEN APPENDECTOMY FOR PERFORATED ACUTE APPENDICITIS 01/19/2018 WITH PLACEMENT OF WOUND VAC ON THE SKIN INCISION. OPERATION: Removal of the Wound Vac and delayed primary closure of abdominal incision site. SURGEON: CLARKE PACHECO M.D. ANESTHESIA: Local, MAC. INDICATION: This is a 52-year-old male who had open appendectomy for a perforated acute appendicitis. The skin and subcu was left open and a Wound Vac placed over it immediately after surgery. The Wound Vac is ready to be removed for delayed primary closure of the incision. PROCEDURE: After adequate IV sedation, the patient is placed in supine position. Appropriate timeout was called. Wound Vac was then removed and abdominal incision site was subsequently prepped and draped in the usual sterile fashion. Drain was also removed. Local anesthesia was then infiltrated around the incision site using about 15 mL of 1% Xylocaine. Multiple simple sutures using 2-0 Nylon were used to close the incision. The incision site roughly measured about 17 cm long with elliptical incision right below the umbilicus for the placement of initial trocar at the time of the first operation for an attempted laparoscopic technique. The patient tolerated the procedure well. Needle, instrument, and sponge count were all correct. ESTIMATED BLOOD LOSS: About 15 mL. The wound looks good with good granulation tissue after removal of the Wound Vac. The skin edges came together nicely with minimal tension. Sterile dressing was placed over the incision site. Needle, instrument, and sponge count were all correct. The patient tolerated the procedure well and brought to the recovery room in satisfactory condition. DICTATING PHYSICIAN: CLARKE PACHECO M.D. [id number] PHY#: [id number] ID: [id number] JOB#: [id number] ACCT: [id number] cc:CLARKE PACHECO M.D. >
[2018-01-23] MEDS: ALBUTEROL SULFATE 0.083% NEB 2.5 MG/3 ML AMPUL NEB SCH ×2 (01:26→09:13)
[2018-01-23] MEDS: METRONIDAZOLE 500 MG/NS RTU 500 MG/100 ML RTUPB IV SCH (05:46)
[2018-01-23] MEDS ORDERED: ENOXAPARIN SODIUM INJ 40 MG/0.4 ML DISP.SYRIN SUBCUT SCH (06:00)
[2018-01-23 06:03] LABS: ABSOLUTE EOSINOPHILS # (AUTO) 0.3 10^3/uL (0.0-0.6); ABSOLUTE LYMPHOCYTES (AUTO) 0.8 10^3/uL (0.5-4.7); ABSOLUTE MONOCYTES (AUTO) 0.6 10^3/uL (0.1-1.4); ABSOLUTE NEUT (AUTO) 3.6 10^3/uL (1.7-8.2); BASOPHILS % (AUTO) 0.5 % (0-2); EOSINOPHILS % (AUTO) 6.1 % (0-6); HEMATOCRIT 38.8 % (37.9-51.0); HEMOGLOBIN 13.8 g/dL (13.5-17.0); LYMPHOCYTES % (AUTO) 15.1 % (13-45); MEAN CORPUSCULAR HEMOGLOBIN 33.1 pg (27.0-33.4); MEAN CORPUSCULAR HGB CONC 35.5 g/dL (32.0-36.0); MEAN CORPUSCULAR VOLUME 93 fl (80-97); MONOCYTES % (AUTO) 10.9 % (3-13); PLATELET COUNT 140 10^3/uL (150-450); RED BLOOD COUNT 4.16 10^6/uL (4.35-5.55); RED CELL DISTRIBUTION WIDTH 13.1 % (11.5-14.0); SEGMENTED NEUTROPHILS % (AUTO) 67.4 % (42-78); TOTAL CELLS COUNTED % (AUTO) 100 %; WHITE BLOOD COUNT 5.4 10^3/uL (4.0-10.5)
[2018-01-23] MEDS: KETOROLAC TROMETHAMINE INJ/PF 30 MG/1 ML SDV IV PRN (07:26)
[2018-01-23] MEDS: HYDROCHLOROTHIAZIDE 12.5 MG TABLET PO SCH (09:06)
[2018-01-23] MEDS: LISINOPRIL 10 MG TABLET PO SCH (09:06)
[2018-01-23] MEDS: ACETAMINOPHEN 325 MG TABLET PO PRN (11:18)
[2018-01-23 12:50] VITALS: BP 142/90
--- NOTE | 2018-01-23 14:43 | PDOC PROGRESS REPORT ---
Subjective Progress Note for:: 01/23/18 Subjective:: Patient was admitted for acute appendecitis. Hospitalist service was sought due to fever and questionable pneumonia. He underwent an open appendectomy for perforated appendicitis on 01/19/18. Patient is going for closure of today. No acute event overnight. He had closure of his incision yesterday. Patient denies abdominal pain, nausea or vomiting. No fever/chills overnight. No cough or shortness of breath. Reason For Visit: ACUTE APPENDICITIS WITH PERITONITIS Physical Exam Vital Signs: Temp Pulse Resp BP Pulse Ox 98.5 F 76 18 142/90 H 95 01/23/18 12:45 01/23/18 12:45 01/23/18 12:45 01/23/18 12:45 01/23/18 12:45 Intake & Output 01/22/18 01/23/18 01/24/18 06:59 06:59 06:59 Intake Total 1890 3690 1100 Output Total 2665 100 Balance -775 3590 1100 Weight 262 lb 5.601 oz General appearance: PRESENT: no acute distress, well-developed, well-nourished Head exam: PRESENT: atraumatic, normocephalic Eye exam: PRESENT: conjunctiva pink, EOMI, PERRLA. ABSENT: scleral icterus Neck exam: ABSENT: carotid bruit, JVD, lymphadenopathy, thyromegaly Respiratory exam: PRESENT: clear to auscultation lorenza, rhonchi - rhonchi on the bases. ABSENT: rales, wheezes GI/Abdominal exam: PRESENT: other - soft, nontender, dressing in place Rectal exam: PRESENT: deferred Extremities exam: PRESENT: full ROM. ABSENT: calf tenderness, clubbing, pedal edema Results Laboratory Results: 01/23/18 05:47 01/20/18 06:21 01/23/18 05:47 WBC 5.4 RBC 4.16 L Hgb 13.8 Hct 38.8 MCV 93 MCH 33.1 MCHC 35.5 RDW 13.1 Plt Count 140 L Seg Neutrophils % 67.4 Lymphocytes % 15.1 Monocytes % 10.9 Eosinophils % 6.1 H Basophils % 0.5 Absolute Neutrophils 3.6 Absolute Lymphocytes 0.8 Absolute Monocytes 0.6 Absolute Eosinophils 0.3 Absolute Basophils 0.0 Impressions: Abdomen/Pelvis CT 01/19/18 06:39 IMPRESSION: 1. Acute appendicitis. 2. 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 Chest X-Ray 01/19/18 06:39 IMPRESSION: Small left basilar pneumonia/atelectasis. Differential etiologies include infectious, inflammatory, and neoplastic processes. Recommend CR/CT surveillance including at 7-12 weeks following initiation of clinically warranted therapy. Chest CT 01/21/18 00:00 IMPRESSION: Bibasilar consolidation atelectasis versus pneumonia Assessment & Plan - Diagnosis (1) Fever Is this a current diagnosis for this admission?: Yes Plan: Resolved. Fever was likely post-operative related rather than from pneumonia. Patient had abodminal washout and cultures grew E. coli and anaerobes. On Rocephin and Flagyl per ID recommendation. (2) Perforated appendicitis Is this a current diagnosis for this admission?: Yes Plan: S/P open appendectomy on 01/19/18 with with closure on 01/22/18. - Time Time Spent with patient: 15-24 minutes
--- NOTE | 2018-01-24 13:50 | DISCHARGE SUMMARY E ---
Discharge Summary NAME: SAÚL ASHFORD : 1965 AGE: 52Y ADMITTED: 01/19/2018 DISCHARGED: 01/23/2018 FINAL DIAGNOSIS: 1. PERFORATED ACUTE APPENDICITIS. 2. DELAYED PRIMARY CLOSURE OF ABDOMINAL WOUND POST VAC PLACEMENT. PROCEDURE DONE: January 19, 2018 laparoscopic appendectomy for perforated appendicitis. Wound VAC was placed on the skin postoperatively. Patient did quite well although he had episodes of fever most likely from atelectasis. He was continued on IV antibiotics, but his white count never really went above normal. He has been having some increased respiratory secretions. He was continued also on incentive spirometry. On 01/22/2018, the wound VAC was removed and the skin closed by delayed primary closure under local MAC in the OR. The next day on 01/23/2018, patient did well, eating regular diet. No fever and the incision noted to be clean and dry. New dressing was placed. Patient discharged improved on 01/24/2016 without antibiotics. Prescription for Percocet was given. Patient asking for a cane, if he can walk with a cane since he lives on the second floor. I told him he can have a cane but make sure he uses his railings when going up the stairs. His ex- is beside him and ex- understands instructions. Patient will be with his ex- for the next few days. He was advised to follow up at [facility] 2 weeks for removal of the sutures. DICTATING PHYSICIAN: CLARKE PACHECO M.D. [id number] PHY#: [id number] ID: [id number] JOB#: [id number] ACCT: [id number] cc:CLARKE PACHECO M.D. [facility],
== END 2018-01-23 13:04 | disposition home or self-care (01) | DRG 340 ==
LOC: ER 06:04 → EH 08:47 → 2S 18:32
PROVIDERS: ADMIT Surgery; ATTEND Surgery
PROC: 0DJD4ZZ Inspection of Lower Intestinal Tract, Percutaneous Endoscopic Approach (ICD-10-PCS; 2018-01-19)
PROC: 3E0F73Z Introduction of Anti-inflammatory into Respiratory Tract, Via Natural or Artificial Opening (ICD-10-PCS; 2018-01-19)
PROC: 0DTJ0ZZ Resection of Appendix, Open Approach (ICD-10-PCS; principal; 2018-01-19 13:00)
PROC: 0WQF3ZZ Repair Abdominal Wall, Percutaneous Approach (ICD-10-PCS; 2018-01-22)
PROC: 0WPF30Z Removal of Drainage Device from Abdominal Wall, Percutaneous Approach (ICD-10-PCS; 2018-01-22)
DX: K35.2 Acute appendicitis with generalized peritonitis (principal); I10 Essential (primary) hypertension; F32.9 Major depressive disorder, single episode, unspecified; I72.3 Aneurysm of iliac artery; B96.20 Unspecified Escherichia coli [E. coli] as the cause of diseases classified elsewhere; F41.9 Anxiety disorder, unspecified; F43.10 Post-traumatic stress disorder, unspecified; E66.9 Obesity, unspecified; Z68.39 Body mass index [BMI] 39.0-39.9, adult; B96.6 Bacteroides fragilis [B. fragilis] as the cause of diseases classified elsewhere; Z88.8 Allergy status to other drugs, medicaments and biological substances
CPT/HCPCS: 36415; 400; 71045; 71250; 74177; 80048; 80053; 81001; 83690; 840; 85025; 87070; 87075; 87077; 87186; 87205; 88304; 93005; 93010; 94799; 99285; J0131; J0330; J0696; J1100; J1170; J1650; J1885; J1940; J2250; J2270; J2405; J2543; J2704; J3010; J3490; J7030; J7040

== ENCOUNTER 2018-03-23 14:12 | Emergency (ER) | payer OTHER ==
[2018-03-23] MEDS ORDERED: LIDOCAINE 5% (700 MG) TRANSDERMAL ADH..PATCH TP ONE (14:29)
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
[2018-03-23 15:10] VITALS: BP 121/96
== END 2018-03-23 15:17 | disposition home or self-care (01) ==
LOC: ER 14:12
DX: M54.5 Low back pain (principal); X50.0XXA Overexertion from strenuous movement or load, initial encounter; Y93.89 Activity, other specified; I10 Essential (primary) hypertension
CPT/HCPCS: 99283

== ENCOUNTER 2018-09-27 11:47 | Emergency (ER) | payer OTHER ==
--- NOTE | 2018-09-27 12:27 | ER Document Report ---
ED Medical Screen (RME) - General Chief Complaint: Finger Injury Stated Complaint: HAND INFECTION Time Seen by Provider: 09/27/18 12:19 Mode of Arrival: Ambulatory Information source: Patient Notes: Patient presents the emergency department with complaints of right third digit swelling with drainage. Appears to be a paronychia. Patient reports it started 3-4 days ago after he was working in the garden. No prodromal symptoms such as fever or cold symptoms before. Patient does admit to biting his fingernails. Patient reports no vesicles. Patient reports when he hits the finger on a s eatbelt or something the area will drain. I have greeted and performed a rapid initial assessment of this patient. A comprehensive ED assessment and evaluation of the patient, analysis of test res ults and completion of the medical decision making process will be conducted by additional ED providers. TRAVEL OUTSIDE OF THE [place] IN LAST 30 DAYS: No - Related Data Allergies/Adverse Reactions: No Known Allergies Allergy (Verified 09/27/18 11:49) Past Medical History - Past Medical History Cardiac Medical History: Reports: Hx Hypertension Renal/ Medical History: Denies: Hx Peritoneal Dialysis Psychiatric Medical History: Reports: Hx Depression Past Surgical History: Reports: Hx Appendectomy, Hx Orthopedic Surgery - shoulder Physical Exam - Vital signs Vitals: Temp Pulse Resp BP Pulse Ox 98.8 F 106 H 20 143/108 H 96 09/27/18 12:05 09/27/18 12:05 09/27/18 12:05 09/27/18 12:05 09/27/18 12:05 Course - Vital Signs Vital signs: Temp Pulse Resp BP Pulse Ox 98.8 F 106 H 20 143/108 H 96 09/27/18 12:05 09/27/18 12:05 09/27/18 12:05 09/27/18 12:05 09/27/18 12:05
[2018-09-27] MEDS ORDERED: CEPHALEXIN 500 MG CAPSULE PO ONE (15:21)
[2018-09-27] MEDS ORDERED: LIDOCAINE 1% INJ-PF (10 MG/ML) 30 ML SDV INJ ONE (15:21)
[2018-09-27] MEDS ORDERED: IBUPROFEN 800 MG TABLET PO ONE (15:21)
[2018-09-27] MEDS ORDERED: SULFAMETHOXAZOLE/TRIMETHOPRIM 800-160 MG TABLET PO ONE (15:21)
--- NOTE | 2018-09-27 15:48 | ER Document Report ---
HPI - HPI Patient complains to provider of: Paronychia Time Seen by Provider: 09/27/18 12:19 Pain Level: 4 Context: Patient is a 52-year-old male presents to the emergency department with redness and swelling noted to his distal right middle finger. Patient states he woke up like this this morning. Patient states he was able to squeeze a small amount of discharge presented to the emergency room due to pain. Patient denies any history of MRSA infections, denies any history of paronychia S. Past medical history: Hypertension Medications: Lisinopril, HCTZ Allergies: None Patient drove himself to the emergency room. Past Medical History - General Information source: Patient - Social History Smoking Status: Former Smoker Family History: None Patient has suicidal ideation: No Patient has homicidal ideation: No - Past Medical History Cardiac Medical History: Reports: Hx Hypertension Renal/ Medical History: Denies: Hx Peritoneal Dialysis Psychiatric Medical History: Reports: Hx Depression Past Surgical History: Reports: Hx Appendectomy, Hx Orthopedic Surgery - shoulder Vertical Provider Document - CONSTITUTIONAL Agree With Documented VS: Yes Notes: GENERAL: Alert, interacts well. No acute distress. HEAD: Normocephalic, atraumatic. EYES: Pupils equal, round, and reactive to light. Extraocular movements intact. ENT: Oral mucosa moist, tongue midline. NECK: Full range of motion. Supple. Trachea midline. LUNGS: Clear to auscultation bilaterally, no wheezes, rales, or rhonchi. No respiratory distress. HEART: Regular rate and rhythm. No murmur ABDOMEN: Soft, non-tender. Non-distended. Bowel sounds present in all 4 quadrants. EXTREMITIES: Moves all 4 extremities spontaneously. No edema, normal radial and dorsalis pedis pulses bilaterally. No cyanosis. BACK: no cervical, thoracic, lumbar midline tenderness. No saddle anesthesia, normal distal neurovascular exam. NEUROLOGICAL: Alert and oriented x3. Normal speech. cranial nerves II through XII grossly intact PSYCH: Normal affect, normal mood. SKIN: Warm, dry, normal turgor. Obvious area of fluctuance noted entire nailbed of right middle finger. Also erythema and swelling noted distal aspect of right middle finger. Patient has full range of motion PIP DIP and MCP. - INFECTION CONTROL TRAVEL OUTSIDE OF THE [place] IN LAST 30 DAYS: No Course - Re-evaluation Re-evalutation: 09/27/18 15:44 See procedure note for details, patient tolerated I&D with no complications. Will place patient on antibiotics for cellulitic tissue noted. Discussed close follow-up with primary care provider. Patient stable for discharge. - Vital Signs Vital signs: Temp Pulse Resp BP Pulse Ox 98.8 F 106 H 20 143/108 H 96 09/27/18 12:05 09/27/18 12:05 09/27/18 12:05 09/27/18 12:05 09/27/18 12:05 Procedures - Incision and Drainage Paronychia Type: Simple Anesthetic type: 1% Lidocaine mL's of anesthetic: 5 - Digital block Blade size: 11 I&D procedure: Betadine prep applied, Sterile dressing applied Incision Method: Incision made by scalpel Amount/type of drainage: Copious purulent Discharge - Discharge Clinical Impression: Paronychia of finger Qualifiers: Laterality: right Qualified Code(s): L03.011 - Cellulitis of right finger Condition: Stable Disposition: HOME, SELF-CARE Instructions: Paronychia ([facility]), Cellulitis ([facility]) Additional Instructions: As we discussed you have been seen and treated in the emergency department for a paronychia. Please expect further drainage from the site. Please also do warm water soaks. Please take antibiotics as prescribed. Please follow-up with your primary care provider in the next 24-48 hours or return to the emergency room should the redness, swelling increase. Prescriptions: Cephalexin Monohydrate [Keflex 500 mg Capsule] 500 mg PO BID 7 Days #14 capsule Sulfamethoxazole/Trimethoprim [Bactrim Ds Tablet] 1 each PO BID 7 Days #14 tablet Referrals: [facility] - Follow up as needed [facility] [Provider Group] - Follow up as needed
[2018-09-27] MEDS ORDERED: HYDROCODONE/ACETAMINOPHEN 5-325 MG (6 TAB/ER DISP) PO PRN (15:49)
[2018-09-27 16:24] VITALS: BP 160/123
== END 2018-09-27 16:29 | disposition home or self-care (01) ==
LOC: ER 11:47
DX: L03.011 Cellulitis of right finger (principal); I10 Essential (primary) hypertension
CPT/HCPCS: 99283; 10060; J3490